=== PATIENT | female | born 1985 ===

== ENCOUNTER 2023-01-18 17:13 | Emergency (ER) | payer MEDICAID ==
[~2023-01-18] VITALS: Ht 153.7 cm; Wt 57.3 kg
[2023-01-18 17:23] VITALS: BP 131/80; PULSE 94; RESP 15; TEMP 98.3; O2SAT 100
== END 2023-01-18 21:13 | disposition left against medical advice (07) ==
LOC: ER 17:15
DX: R51.9 Headache, unspecified (principal); M54.2 Cervicalgia; J02.9 Acute pharyngitis, unspecified; M25.512 Pain in left shoulder; M25.562 Pain in left knee; M25.572 Pain in left ankle and joints of left foot; Z53.21 Procedure and treatment not carried out due to patient leaving prior to being seen by health care provider
CPT/HCPCS: 99281